=== PATIENT | male | born 1950 | race African-American/Black ===

== ENCOUNTER 2018-03-10 07:29 | Emergency (ER) | payer OTHER, MEDICARE, MEDICAID ==
[~2018-03-10] VITALS: Ht 172.7 cm; Wt 65.9 kg
[2018-03-10 07:48] LABS: GLUCOSE,POINT OF CARE 293 MG/DL (70-110)
[2018-03-10] MEDS ORDERED: ACET1TAB15 PO (07:50)
[2018-03-10] MEDS ORDERED: [UNRECOGNIZED DRUG - OTHER] PO (07:50)
[2018-03-10] MEDS ORDERED: METF-960 PO (07:50)
[2018-03-10] MEDS ORDERED: GLIP5 PO (07:50)
[2018-03-10 08:54] VITALS: BP 145/87
== END 2018-03-10 09:39 | disposition home or self-care (01) ==
LOC: EMS 07:31
DX: S61.551A Open bite of right wrist, initial encounter (principal); E11.9 Type 2 diabetes mellitus without complications; F12.90 Cannabis use, unspecified, uncomplicated; F17.210 Nicotine dependence, cigarettes, uncomplicated; Z79.84 Long term (current) use of oral hypoglycemic drugs; W54.0XXA Bitten by dog, initial encounter; Y93.89 Activity, other specified; Y92.89 Other specified places as the place of occurrence of the external cause; Y99.8 Other external cause status